=== PATIENT | female | born 1990 | race Caucasian/White ===

== ENCOUNTER 2016-10-13 11:42 | Observation (INO) ==
[2016-10-13] MEDS ORDERED: hydrALAZINE 20 MG/1 ML VIAL IV STA ×2 (13:07→14:43)
[2016-10-13 13:21] LABS: Basophils % 0.4 % (0.0-0.8); Eosinophils # 0.1 10*3/uL (0.0-0.87); Eosinophils % 1.3 % (0.00-10.9); Hematocrit 43.8 VOL% (35.7-47.0); Hemoglobin 15.8 GM/DL (12.0-16.0); Immature Granulocytes % 0.1 %; Immature Granulocytes Absolute 0.01 #; Lymphocytes # 2.7 10*3/uL (1.4-4.0); Mean Corpuscular HGB Conc 36.1 GM/DL (32-36); Mean Corpuscular Hemoglobin 32 PG (27-34); Mean Corpuscular Volume 87.3 FL (87-102); Mean Platelet Volume 12.1 FL (9.6-12.0); Monocytes # 0.6 10*3/uL (0.11-0.8); Monocytes % 7.7 % (1.7-12.7); Neutrophils # 4.3 10*3/uL (1.4-7.4); Neutrophils % 55.5 % (38.7-73.9); Platelet Count 186 T/CUMM (130-400); Red Blood Count 5.02 MC/CUMM (3.8-5.5); Red Cell Distribution Width 12.3 % (9.3-17.3); White Blood Count 7.7 T/CUMM (4-12)
[2016-10-13] MEDS ORDERED: hydrALAZINE 20 MG/1 ML VIAL ONE (13:25)
[2016-10-13 13:52] LABS: Alanine Aminotransferase 35 U/L (13-56); Albumin 3.8 G/DL (3.4-5.0); Alkaline Phosphatase 111 U/L (45-117); Aspartate Amino Transferase 19 U/L (0-37); Bilirubin,Total < 0.39 MG/DL (0.2-1.0); Blood Urea Nitrogen 9 MG/DL (7-18); Calcium 8.7 MG/DL (8.5-10.1); Glucose 89 MG/DL (74-106); Osmolality,Calculated 274.5 MOS/KG (273-304); Potassium 3.7 MMOL/L (3.5-5.1); Sodium 139 MMOL/L (136-145); Total Protein 7.3 G/DL (6.4-8.3); Troponin I Only < 0.015 NG/ML (0.00-0.045)
--- NOTE | 2016-10-13 13:56 | XRay Report ---
Exam: XR chest 2V Date: 10/13/2016 1:06 PM Indication: Chest pain hypertension Comparison: None Technical: PA lateral Findings: The heart, lungs, mediastinum and bony structures are intact. Impression: 1. No acute cardiopulmonary pathology. PROCEDURE INTERPRETED AT [facility] DEPARTMENT OF RADIOLOGY Final Report Signed by: Dr. Justus Dhaliwal
--- NOTE | 2016-10-13 14:53 | CT Report ---
Referring physician: Kasey Blount Exam: CT brain without contrast Date: 10/13/2016 Comparison: None Reason: Headache, hypertension Technique: Axial images of the head were obtained without the use of contrast. Total DLP was 970.10 mGy*cm. Findings: No hydrocephalus or midline shift is present. There is no evidence of an acute infarction, recent intracranial hemorrhage or abnormal mass effect. The osseous structures appear intact. The mastoid air cells and visualized paranasal sinuses are clear. Impression: No acute intracranial abnormality is identified. The CT exam was performed using one or more of the following dose reduction techniques: Automated exposure control and adjustment of the mA and/or kV according to patient size. PROCEDURE INTERPRETED AT [facility] DEPARTMENT OF RADIOLOGY Final Report Signed by: Dr. Katherine Adam
[2016-10-13] MEDS ORDERED: NITROGLYCERIN SL 0.4 MG TABLET SL ONE (15:47)
[2016-10-13] MEDS: NITROGLYCERIN SL 0.4 MG TABLET SL SCH ×3 (15:48→17:30)
--- NOTE | 2016-10-13 15:51 | Emergency Department Note ---
Arrival - Arrival Chief Complaint: Blood Pressure Stated Complaint: high blood pressure X 1 week ED Nursing Triage Note: Pt c/o high blood pressure (200/115), LOU, and CP x 1 wk. Mode of Arrival: Ambulatory Source: Patient Time Seen by Provider: 10/13/16 13:13 - History of Present Illness HPI Narrative: 25 y/o white female presents to the ER complaining of elevated blood pressure, headache, and chest pain. Symptoms starting 1 week ago. Denies having trouble with blood pressure in the past but states she does have a family history of hypertension. Chest pain is substernal and radiate to left chest wall. Describes pain as a sharp shooting pain. States headache is diffuse and throbbing in nature. Past medical history significant for section. No primary care physician. Onset (ago): week(s) (1) Severity: moderate Quality: sharp (headache ), other (headache-throbbing ) Date of Last Menstrual Period: BC implant Allergies/Adverse Reactions: Allergies Allergy/AdvReac Type Severity Reaction Status Date / Time No Known Allergies Allergy Verified 12/31/15 19:42 Home Medications: Home Medications Medication Instructions Recorded Confirmed Type Cyclobenzaprine [Flexeril] 10 mg PO TID #20 tablet 12/31/15 Rx Ketorolac Tab [Toradol Tab] 10 mg PO Q8H #14 tablet 12/31/15 Rx Review of System - Review of System 12 point system: reviewed and no additional remarkable complaints except as stated - Review of System Cardiovascular: Present: chest pain Neurological: Present: headache Medical,Surgical,& Family Hx - Surgical History Reproductive Surgeries: Surgical HX of;: Section - Social History Smoking Status: Never smoker Exam Vital Signs: Vital Signs Temperature 97.8 F 10/13/16 12:25 Pulse Rate 85 10/13/16 13:45 Respiratory Rate 20 10/13/16 15:45 Blood Pressure 175/106 10/13/16 15:45 O2 Sat by Pulse Oximetry 100 10/13/16 11:46 - General General appearance: alert, in no apparent distress - ENT ENT exam: Present: normal exam, normal oropharynx, mucous membranes moist - Chest Chest inspection: Present: normal inspection - Respiratory Respiratory exam: Present: normal lung sounds bilaterally - Cardiovascular Cardiovascular exam: Present: regular rate, normal rhythm, normal heart sounds - Abdominal Exam Abdominal exam: Present: soft, normal bowel sounds. Absent: tenderness - Extremities Exam Extremities exam: Present: normal inspection, full ROM - Neurological Exam Neurological exam: Present: alert, oriented X3, CN II-XII intact, normal gait - Psychiatric Psychiatric exam: Present: normal affect, normal mood - Skin Skin exam: Present: warm, dry Course - Consultations Consultation #1: Hospitalist Time: 16:00 (Discussed case with Hospitalist [facility]. Will admit patient ) Results - Labs CBC & BMP: 10/13/16 13:11 10/13/16 13:11 Lab Results: I have reviewed the patients labs - Diagnostic Findings Procedure: Chest x-ray: image reviewed by me, report reviewed by me (no acute abnormality ), CT: image reviewed by me, report reviewed by me (Head: no acute abnormality ) Disposition Clinical Impression: Hypertension, Headache, Chest pain Disposition: Still a Patient
[2016-10-13] MEDS ORDERED: ONDANSETRON 4 MG/2 ML VIAL IV PRN (16:10)
[2016-10-13] MEDS ORDERED: ACETAMINOPHEN 325 MG TABLET PO PRN (16:10)
[2016-10-13] MEDS ORDERED: NICOTINE 21 MG/24 HR PATCH TRANSDERM PRN (16:10)
--- NOTE | 2016-10-13 16:12 | EKG Report ---
Stationary ECG Study [facility] Test Date: 10/13/2016 12:34:57 PM Pat Name: IVETT RAI Department: Room: Gender: F Systems Project Manager: : 1990 Requested by: Evelyn Elliott Order Number: [id number] Reading MD: SNEHAL ORDOÑEZ Intervals [place] Rate: 69 P: 7 DC: 126 QRS: 1 QRSD: 107 T: 32 QT: 382 QTc: 401 Interpretive Statements SINUS RHYTHM Electronically Signed On 10-13-16 18:34:41 CDT by SNEHAL ORDOÑEZ [email or web address]
[2016-10-13] MEDS ORDERED: cloNIDine 0.1 MG TABLET PO STA (16:14)
[2016-10-13] MEDS ORDERED: NITROGLYCERIN 2% OINT 1 INCH/GM PACK TOP STA (16:15)
[2016-10-13] MEDS ORDERED: hydrALAZINE 20 MG/1 ML VIAL IV PRN (16:18)
[2016-10-13] MEDS ORDERED: amLODIPine 10 MG TABLET PO SCH (16:30)
--- NOTE | 2016-10-13 16:51 | Ultrasound Report ---
Exam: US renal Bilateral Date: 10/13/2016 4:23 PM Comparison: None Indication: Hypertension Technique:[Multiple transabdominal real-time scans were obtained of the kidneys. Ultrasound images were captured and stored.] Findings: Right kidney measures 127 x 47 x 46 mm. Left kidney measures 125 x 50 x 47 mm. No hydronephrosis or mass. Impression: The kidneys are symmetric in size with no mass or hydronephrosis. PROCEDURE INTERPRETED AT [facility] DEPARTMENT OF RADIOLOGY Final Report Signed by: Dr. Katherine Adam
--- NOTE | 2016-10-13 17:17 | Hospitalist History & Physical ---
Assessment and Plan (1) Chest pain Status: Acute Assessment and plan: Although the patient has some known risk factors, we will conduct full cardiac work-up. Current Visit: Yes Qualifiers: Chest pain type: unspecified Qualified Code(s): R07.9 - Chest pain, unspecified (2) Headache Status: Acute Assessment and plan: CT head negative; will manage pain and monitor. Current Visit: Yes Qualifiers: Headache chronicity pattern: acute headache (3) Hypertension Status: Acute Assessment and plan: Blood pressure grossly elevated at the time of presentation, we will start antihypertensive agents to lower blood pressure. Will obtain echocardiogram and renal ultrasound to assess for target organ damage. Current Visit: Yes Qualifiers: Hypertension type: essential hypertension Qualified Code(s): I10 - Essential (primary) hypertension History of Present Illness Chief complaint: elevated blood pressure/headache/ chest pain History of present illness: This is a very pleasant 26 year old female that presented to the Non-Urgent Care /Fast Track at [facility] this afternoon for evaluation of elevated blood pressure, chest pain, and headache. She reports no significant medical history; however reports a surgical history of cesaerean section x2. She reports the onset of the above symptoms a week prior to presentation. She denies any previous diagnosis of hypertension; however reports a strong family history of hypertension in her immediate family. In addition, she reports left chest wall pain and describes it as shooting and sharp in quality. The patient reports no current PCP. Upon presentation to the Non-Urgent Care/Fast Track, she was noted to be grossly hypertensive with a blood pressure noted at 220/125 in which she was given Hydralazine. Nitroglycerin past was also applied for the compliant of chest pain; which brought minimal relief. Labs and chest radiograph was obtained which were both unremarkable. After brief discussion with TWILA Blount and Dr. Elliott, the patient will be admitted to the hospitalist service for continuation of care. Home Medications Medication Instructions Recorded Confirmed Type Cyclobenzaprine [Flexeril] 10 mg PO TID #20 tablet 12/31/15 Rx Ketorolac Tab [Toradol Tab] 10 mg PO Q8H #14 tablet 12/31/15 Rx Allergies Allergy/AdvReac Type Severity Reaction Status Date / Time No Known Allergies Allergy Verified 12/31/15 19:42 Medical,Surgical,& Family Hx - Surgical History Reproductive Surgeries: Surgical HX of;: Section - Social History Smoking Status: Never smoker Frequency of Alcohol Use: None Type of Drug Use: None Marital Status: Lives With:: Spouse 12 point system: reviewed and no additional remarkable complaints except as stated Exam - Constitutional General appearance: mild distress, over weight - Head Head exam: Present: normal inspection, normocephalic, atraumatic - Eye Eye exam: Present: EOMI. Absent: conjunctival injection, nystagmus Pupils: Present: SARAH, normal accommodation - ENT ENT exam: Present: normal exam, normal external ear exam, normal oropharynx - Neck Neck exam: Present: normal inspection. Absent: lymphadenopathy, meningismus, tenderness, thyromegaly - Respiratory Respiratory exam: Present: clear to auscultation bilaterally. Absent: rales, rhonchi, stridor, wheezes - Cardiovascular Cardiovascular exam: Present: bradycardia, regular rate and rhythm, tachycardia , other (chest wall tenderness however reproducible). Absent: carotid bruit, diastolic murmur, gallop, JVD, rubs, systolic murmur - GI/Abdominal GI/Abdominal exam: Present: normal bowel sounds, soft - Extremities Exam Extremities exam: Present: normal inspection, normal capillary refill, full ROM. Absent: calf tenderness, edema - Back Exam Back exam: Present: normal inspection - Neurological Exam Neurological exam: Present: alert, oriented X3, CN II-XII intact - Psychiatric Psychiatric exam: Present: flat affect - Skin Skin exam: Present: normal color, warm, dry Results - Labs CBC & BMP: 10/13/16 13:11 10/13/16 13:11 Lab Results: I have reviewed the past 24 hour labs Quality Measures - VTE Contraindication to Pharmacological VTE Prophylaxis: Clinical assessment deems Pt at low risk, no prophalaxis needed
[2016-10-13 17:24] LABS: Barbiturates Screen,Urine Negative (Negative); Benzodiazepines Screen,Urine Negative (Negative); Cannabinoid Screen,Urine Negative (Negative); Opiate Screen,Urine Negative (Negative); Phencyclidine Screen,Urine Negative (Negative)
[2016-10-13 17:29] LABS: Apearance,Urine CLEAR (Clear); Bacteria,Urine Many /HPF (Few); Bilirubin,Urine Negative (Negative); Blood, Urine Negative (Negative); Glucose,Urine (UA) Negative (Negative); Ketones,Urine Negative (Negative); Nitrite,Urine Positive (Negative); Protein,Urine Negative; Squamous Epithelial Cell,Urine Occasional /HPF (0-10); Urine Color Straw (Yellow); Urine Specific Gravity 1.003 (1.001-1.035); Urine Urobilinogen < 2.0 EU/DL (0.2-1.0); WBC,Urine 2 /HPF (0-6)
[2016-10-13] MEDS: PANTOPRAZOLE 40 MG TABLET PO SCH (17:55)
[2016-10-13] MEDS: LABETALOL 100 MG TABLET PO SCH ×2 (17:55→22:41)
[2016-10-13] MEDS: LISINOPRIL/HCTZ 20-25 MG TABLET PO SCH (17:55)
[2016-10-13 18:46] LABS: Risk Ratio 4.03; VLDL CHOLESTEROL 15.6 MG/DL
[2016-10-13] MEDS ORDERED: cloNIDine 0.1 MG TABLET PO SCH (21:00)
[2016-10-13] MEDS: NITROGLYCERIN 2% OINT 1 INCH/GM PACK TOP SCH (22:41)
[2016-10-14 05:52] LABS: Calcium 8.9 MG/DL (8.5-10.1); Osmolality,Calculated 273.7 MOS/KG (273-304)
--- NOTE | 2016-10-14 08:03 | EKG Report ---
Stationary ECG Study [facility] Test Date: 10/14/2016 8:01:39 AM Pat Name: IVETT RAI Department: Room: 278 Gender: F Lapidarist: LEDY : 1990 Requested by: Evelyn Elliott Order Number: [id number] Reading MD: CHRISTINA MUNGUIA Intervals [place] Rate: 70 P: 29 MO: 140 QRS: 11 QRSD: 109 T: 36 QT: 410 QTc: 431 Interpretive Statements SINUS RHYTHM at 70 bpm WNL Electronically Signed On 10-14-16 08:56:59 CDT by CHRISTINA MUNGUIA [email or web address]
[2016-10-14] MEDS ORDERED: amLODIPine 10 MG TABLET PO SCH (09:00)
[2016-10-14] MEDS: PANTOPRAZOLE 40 MG TABLET PO SCH (09:34)
[2016-10-14] MEDS: LABETALOL 100 MG TABLET PO SCH (09:34)
[2016-10-14] MEDS: LISINOPRIL/HCTZ 20-25 MG TABLET PO SCH (09:34)
[2016-10-14] MEDS: NITROGLYCERIN 2% OINT 1 INCH/GM PACK TOP SCH (09:35)
--- NOTE | 2016-10-14 15:02 | Discharge Summary ---
Hospital Course - Hospital Course Hospital Course: Ms Belle presented with very high blood pressure and accompanying headache and stabbing chest pains. This was a new diagnosis. She has strong family history of HTN. She was started on oral meds and her BP has come down nicely. Her headache and chest pains have resolved and she is feeling much better. She will take lisinopril/HCTZ daily and atenolol if her BP is over 140/90 in the morning. She will take her record of her blood pressures to [facility] in 3 days for follow up. Her renal US was normal. Her echo has not been read. - Time spent with patient Time with patient DS: Greater than 30 minutes (exam, medicine reconciliation, documentation 38 minutes) Specialty Discharge - Follow Up or Referrals Follow up with: [facility] [Provider Group] - 3 Days (new patient, HTN, obesity ) Discharge Plan - Discharge Data Disposition: Disch To Home/Self Care Condition at Discharge: Stable Discharge Diet: heart healthy (diet for gradual weight loss), low fat, low cholesterol Activity: resume usual activities as tolerated - Discharge Medications New Atenolol [Tenormin] 25 mg PO DAILY #30 tablet Lisinopril/Hctz 20-25 [Prinzide 20-25] 1 tablet PO DAILY #30 tablet - Follow Up or Referral - Forms/Instructions Exam - Constitutional Vitals: Period Temp Pulse Resp BP Sys/Avalos Pulse Ox Last 24 Hr 96.9 F-98.4 F 61-97 16-20 92-163/45-107 98-99 Discharge Results Procedures and tests throughout hospitalization: Pending Orders 10/13/16 Urine Culture Routine Labs on day of discharge: Labs from last 24 hours 10/14/16 10/14/16 10/14/16 05:05 05:05 05:05 Sodium 138 Potassium 4.0 Chloride 103 Carbon Dioxide 26 Anion Gap 13.0 BUN 11 Creatinine 1.10 H GFR Calculation 81 BUN/Creatinine Ratio 10.00 Glucose 99 Hemoglobin A1c 5.5 Calculated Osmolality 273.7 Calcium 8.9 Troponin I < 0.015 Triglycerides Cholesterol LDL Cholesterol VLDL Cholesterol HDL Cholesterol Heart Disease Risk Ratio 10/13/16 10/13/16 10/13/16 22:49 18:05 18:05 Sodium Potassium Chloride Carbon Dioxide Anion Gap BUN Creatinine GFR Calculation BUN/Creatinine Ratio Glucose Hemoglobin A1c Calculated Osmolality Calcium Troponin I < 0.015 < 0.015 Triglycerides 78 Cholesterol 161 LDL Cholesterol 106.0 VLDL Cholesterol 15.6 HDL Cholesterol 40 Heart Disease Risk Ratio 4.03 Preliminary micro results at discharge 10/13/16 Unknown Urine Culture - Preliminary Urine,Voided Gram Negative Rods DS: Provider Date of admission: 10/13/16 16:10 Primary care physician: . No PCP Attending physician on admission: Evelyn Elliott MD Discharging clinician: Evelyn Elliott MD
[2016-10-14 15:56] VITALS: BP 114/62
--- NOTE | 2016-10-14 17:52 | ECHO Report ---
Mavis Belle Exam Date: 10/14/2016 09:15 Referring Physician: Technologist: Stephany Cole Age: 26 Ht (in): 65 Wt (lb): 196 Gender: F Exam Location: [facility] Echo Indications: Essential (primary) hypertension, Chest pain, unspecified, Headache BP: 100 / 60 HR: 77 Rhythm: Sinus Technical Quality: Fair IMPRESSIONS Normal left ventricular cavity size. Mild left ventricular hypertrophy. Left ventricular ejection fraction is estimated at 65 %. The right ventricle is normal in size and function. The right atrium is normal in size. The left atrium is normal in size. Morphologically normal mitral valve without significant stenosis or prolapse. There is no mitral regurgitation. Morphologically normal aortic valve without significant sclerosis or stenosis. There is no aortic regurgitation. Morphologically normal tricuspid valve. Trace tricuspid valve regurgitation. Tricuspid regurgitation velocities suggest a PAP of 33 mmHg. Morphologically normal pulmonic valve without significant stenosis. There is no pulmonic regurgitation. Normal pericardium without effusion. Normal ascending aorta dimension. MEASUREMENTS (Male / Female) Normal Values 2D ECHO LV Diastolic Diameter PLAX 3.9 cm 4.2 - 5.9 / 3.9 - 5.3 cm LV Systolic Diameter PLAX 2.5 cm LV Fractional Shortening PLAX 35.6 % IVS Diastolic Thickness 1.4 cm 0.6 - 1.0 / 0.6 - 0.9 cm LVPW Diastolic Thickness 1.2 cm 0.6 - 1.0 / 0.6 - 0.9 cm RV Internal Dim ED PLAX 2.9 cm Aortic Root Diameter 2.6 cm LA Systolic Diameter LX 3.2 cm 3.0 - 4.0 / 2.7 - 3.8 cm DOPPLER TR Peak Velocity 242.0 cm/s TR Peak Gradient 23.4 mmHg FINDINGS Left Ventricle Normal left ventricular cavity size. Mild left ventricular hypertrophy. Left ventricular ejection fraction is estimated at 65 %. Right Ventricle The right ventricle is normal in size and function. Right Atrium The right atrium is normal in size. Left Atrium The left atrium is normal in size. Mitral Valve Morphologically normal mitral valve without significant stenosis or prolapse. There is no mitral regurgitation. Aortic Valve Morphologically normal aortic valve without significant sclerosis or stenosis. There is no aortic regurgitation. Tricuspid Valve Morphologically normal tricuspid valve. Trace tricuspid valve regurgitation. Tricuspid regurgitation velocities suggest a PAP of 33 mmHg. Pulmonic Valve Morphologically normal pulmonic valve without significant stenosis. There is no pulmonic regurgitation. Pericardium Normal pericardium without effusion. Aorta Normal ascending aorta dimension. Bhupinder Jarrett MD (Electronically Signed) Final Date: 14 Oct 2016 17:51
[2016-10-15] MEDS ORDERED: ATENOLOL 25 MG TABLET PO SCH (09:00)
== END 2016-10-14 15:56 | disposition home or self-care (01) ==
LOC: N.TELES 11:42 → N.ED 11:42 → N.TELES 17:12
PROVIDERS: ADMIT Internal Medicine; ATTEND Internal Medicine

== ENCOUNTER 2020-11-10 10:06 | Observation (INO) ==
[2020-11-10 11:19] LABS: Amorphous Crystals,Urine Occasional /HPF (Few); Bacteria,Urine Occasional /HPF (Few); Bilirubin,Urine Negative (Negative); Blood, Urine Moderate mg/dL (Negative); Glucose,Urine (UA) Negative (Negative); Ketones,Urine Negative (Negative); Mucus,Urine Many /LPF (Occasional); Nitrite,Urine Negative (Negative); Protein,Urine Negative; RBC,Urine 3 /HPF (0-4); Squamous Epithelial Cell,Urine Moderate /HPF (0-10); Urine Appearance CLOUDY (Clear); Urine Color Yellow (Yellow); Urine Specific Gravity 1.025 (1.001-1.035); Urine Urobilinogen < 2.0 EU/DL (0.2-1.0)
[2020-11-10 12:23] LABS: Basophils % 0.1 % (0.0-0.8); Eosinophils # 0.1 10*3/uL (0.0-0.87); Eosinophils % 0.9 % (0.00-10.9); Hematocrit 42.6 VOL% (35.7-47.0); Hemoglobin 14.8 GM/DL (12.0-16.0); Immature Granulocytes % 0.3 %; Immature Granulocytes Absolute 0.03 #; Lymphocytes # 1.9 10*3/uL (1.4-4.0); Lymphocytes % 20.4 % (21.3-54.2); Mean Corpuscular HGB Conc 34.7 GM/DL (32-36); Mean Corpuscular Volume 90.8 FL (87-102); Mean Platelet Volume 12.7 FL (9.6-12.0); Monocytes % 8.2 % (1.7-12.7); Neutrophils % 70.1 % (38.7-73.9); Platelet Count 192 T/CUMM (130-400); Red Blood Count 4.69 MC/CUMM (3.8-5.5); White Blood Count 9.3 T/CUMM (4-12)
[2020-11-10 12:41] LABS: Albumin 3.6 G/DL (3.4-5.0); Bilirubin,Total 0.6 MG/DL (0.2-1.0); Calcium 8.6 MG/DL (8.5-10.1); Osmolality,Calculated 274.5 MOS/KG (273-304); Potassium 3.7 MMOL/L (3.5-5.1); Total Protein 7.8 G/DL (6.4-8.2)
[2020-11-10] MEDS ORDERED: HYDROmorphone 2 MG/1 ML VIAL IV STA ×2 (13:46→16:20)
[2020-11-10] MEDS ORDERED: ONDANSETRON 4 MG/2 ML VIAL IV STA (13:47)
[2020-11-10] MEDS ORDERED: SODIUM CHLORIDE 0.9% 1,000 ML IV STA (13:47)
[2020-11-10] MEDS ORDERED: ACETAMINOPHEN 325 MG TABLET PO PRN (14:12)
[2020-11-10] MEDS ORDERED: ONDANSETRON 4 MG/2 ML VIAL IV PRN (14:12)
[2020-11-10] MEDS ORDERED: PROMETHAZINE 25 MG/1 ML VIAL IM PRN (14:12)
[2020-11-10] MEDS ORDERED: KETOROLAC 30 MG/1 ML VIAL IV PRN (14:40)
[2020-11-10] MEDS: PIPERACILLIN/TAZOBACTAM 3,375 MG in SODIUM CHLORIDE 0.9% 100 ML IV SCH ×2 (14:50→22:16)
[2020-11-10] MEDS: LACTATED RINGERS 1,000 ML IV SCH (18:05)
[2020-11-10] MEDS: PANTOPRAZOLE 40 MG TABLET PO SCH (20:27)
[2020-11-10] MEDS: MORPHINE 4 MG/1 ML VIAL IV PRN (20:29)
[2020-11-11] MEDS: LACTATED RINGERS 1,000 ML IV SCH ×2 (07:17→21:36)
[2020-11-11] MEDS: PIPERACILLIN/TAZOBACTAM 3,375 MG in SODIUM CHLORIDE 0.9% 100 ML IV SCH ×3 (07:18→23:29)
[2020-11-11] MEDS ORDERED: LIDOCAINE 1%/EPI INJ 20 ML VIAL ONE (09:10)
[2020-11-11] MEDS ORDERED: BUPIVACAINE MPF 0.25% 30 ML VIAL ONE (09:10)
[2020-11-11] MEDS: PANTOPRAZOLE 40 MG TABLET PO SCH (09:13)
[2020-11-11] MEDS ORDERED: TISSUE ADHESIVE 1 EACH APPLICATOR TOP ONE (09:34)
[2020-11-11] MEDS ORDERED: MIDAZOLAM 2 MG/2 ML VIAL ONE (09:37)
[2020-11-11] MEDS ORDERED: fentaNYL 100 MCG/2 ML VIAL ONE ×2 (09:37→10:45)
[2020-11-11] MEDS ORDERED: ONDANSETRON 4 MG/2 ML VIAL ONE (10:27)
[2020-11-11] MEDS ORDERED: SEVOFLURANE 1 UNIT/15 MINUTE INH ONE ×4 (10:27→11:16)
[2020-11-11] MEDS ORDERED: propofoL 200 MG/20 ML VIAL IV ONE (10:27)
[2020-11-11] MEDS ORDERED: LIDOCAINE 2% 5 ML VIAL ONE (10:27)
[2020-11-11] MEDS ORDERED: ROCURONIUM 50 MG/5 ML VIAL IV ONE (10:27)
[2020-11-11] MEDS ORDERED: DEXAMETHASONE 4 MG/1 ML VIAL ONE (10:27)
[2020-11-11] MEDS ORDERED: SUCCINYLCHOLINE 200 MG/10 ML VIAL ONE (10:27)
[2020-11-11] MEDS ORDERED: LABETALOL 20 MG/4 ML SYRINGE IV ONE (10:32)
[2020-11-11] MEDS: MORPHINE 4 MG/1 ML VIAL IV PRN ×3 (13:02→21:34)
[2020-11-12] MEDS: PIPERACILLIN/TAZOBACTAM 3,375 MG in SODIUM CHLORIDE 0.9% 100 ML IV SCH (07:15)
[2020-11-12] MEDS: PANTOPRAZOLE 40 MG TABLET PO SCH (09:41)
[2020-11-12 11:34] VITALS: BP 132/79
[2020-11-12] MEDS: LACTATED RINGERS 1,000 ML IV SCH (12:42)
== END 2020-11-12 13:42 | disposition home or self-care (01) ==
LOC: N.ED 10:06 → N.EDINP 10:06 → N.3E 17:46
PROVIDERS: ADMIT Surgery; ATTEND Surgery